=== PATIENT | male | born 1980 | race Caucasian/White ===

== ENCOUNTER 2019-03-26 16:33 | Emergency (ER) | payer BC ==
[~2019-03-26] VITALS: Ht 175.3 cm; Wt 163.3 kg
[2019-03-26 16:58] VITALS: Ht 175.3 cm; Wt 163.3 kg
[2019-03-26] MEDS ORDERED: GLUCOPHAGE1000 MG PO (17:00)
[2019-03-26] MEDS ORDERED: ZESTRIL10 MG PO (17:01)
[2019-03-26] MEDS ORDERED: CRESTOR10 MG PO (17:01)
[2019-03-26 18:32] VITALS: BP 189/109
== END 2019-03-26 18:32 | disposition home or self-care (01) ==
LOC: D.ER 16:33
DX: S93.401A Sprain of unspecified ligament of right ankle, initial encounter (principal); W23.0XXA Caught, crushed, jammed, or pinched between moving objects, initial encounter; Y93.89 Activity, other specified; Y92.89 Other specified places as the place of occurrence of the external cause; S89.91XA Unspecified injury of right lower leg, initial encounter